=== PATIENT | female | born 1955 | race Caucasian/White ===

== ENCOUNTER → 2016-12-02 | Outpatient (CLI) | payer OTHER ==
--- NOTE | 2016-12-03 10:53 | MM ---
Reason for exam: screening (asymptomatic). Last mammogram was performed 1 year and 1 month ago. History: Patient is postmenopausal. Took estrogen for 7 years. Took progesterone for 7 years. Physical Findings: A clinical breast exam by your physician is recommended on an annual basis and results should be correlated with mammographic findings. MG Screening Mammo w CAD Bilateral CC and MLO view(s) were taken. Prior study comparison: November 07, 2015, bilateral MG screening mammo w CAD. October 10, 2006, bilateral screening mammogram w/CAD. There are scattered fibroglandular densities. There is chronic nodularity in the right breast. No significant changes when compared with prior studies. ASSESSMENT: Benign, BI-RAD 2 RECOMMENDATION: Routine screening mammogram of both breasts in 1 year.
== END | disposition home or self-care (01) ==
LOC: RADMAMWWP 15:28
PROVIDERS: ATTEND Family Medicine
DX: Z12.31 Encounter for screening mammogram for malignant neoplasm of breast (principal)

== ENCOUNTER → 2018-01-12 | Outpatient (CLI) | payer OTHER ==
--- NOTE | 2018-01-13 18:06 | BD ---
EXAMINATION TYPE: Axial Bone Density DATE OF EXAM: 01/12/2018 COMPARISON: NONE CLINICAL HISTORY: 62-year-old female postmenopausal screening without HRT Height: 61 Weight: 148.9 FRAX RISK QUESTIONS: Alcohol (3 or more units per day): no Family History (Parent hip fracture): no Glucocorticoids (More than 3mos): no (Ex: prednisone, prednisolone, methylprednisolone, dexamethasone, and hydrocortisone). History of Fracture in Adulthood: yes Secondary Osteoporosis: 1. Type 1 Diabetes: no 2. Hyperthyroidism: no 3. Menopause before 45: yes 4. Malnutrition: no 5. Chronic liver disease: no Rheumatoid Arthritis: no Current Tobacco Use: yes RISK FACTORS HISTORY OF: History of Wrist Fracture: rt When: 3 years old Surgery to Spine/Hip(right/left)/Wrist (right/left): t-spine 7,8 Family History of Osteoporosis: yes Active: yes Diet low in dairy products/other sources of calcium: yes Postmenopausal woman: age 41 Lost more than 2 inches in height since high school: yes Frequent falls: no MEDICATIONS: inhalers, pravastatin, lisinopril, ropinirole, dextrine, allergy meds Additional History: EXAM MEASUREMENTS: Bone mineral densitometry was performed using the Dec[employer] System. Bone mineral density as measured about the Lumbar spine is: ----- L1-L4(G/cm2): 1.012 T Score Values are as follows: ----- L2: -1.5 ----- L3: -2.2 ----- L4: -0.8 ----- L1-L4: -1.4 Bone mineral density : baseline Bone mineral density about the R hip (g/cm2): 0.877 Bone mineral density about the L hip (g/cm2): T Score values are as follows: -----R Neck: -1.2 -----L Neck: -1.2 -----R Total: -1.3 -----L Total: -1.7 Bone mineral density : baseline IMPRESSION: Osteopenia (T Score between -2.5 and -1). There is slightly increased risk of fracture and the patient may be considered for treatment. Re-Screen 2-5 years. NOTE: T-SCORE=SD OF THE YOUNG ADULT MEAN.
--- NOTE | 2018-01-14 11:13 | MM ---
Reason for exam: screening (asymptomatic). Last mammogram was performed 1 year and 1 month ago. History: Patient is postmenopausal. Took estrogen for 7 years. Took progesterone for 7 years. Physical Findings: A clinical breast exam by your physician is recommended on an annual basis and results should be correlated with mammographic findings. MG Screening Mammo w CAD Bilateral CC and MLO view(s) were taken. Prior study comparison: December 02, 2016, bilateral MG screening mammo w CAD. November 07, 2015, bilateral MG screening mammo w CAD. There are scattered fibroglandular densities. There is chronic nodularity in the right CC view laterally. 7mm nodule lateral left CC view likely intramammary lymph node not well seen previously and may be subtly apparent on the 2016 exam. 6 month follow up recommended. ASSESSMENT: Probably benign, BI-RAD 3 RECOMMENDATION: Follow-up diagnostic mammogram of the left breast in 6 months. ANDRAE
== END | disposition home or self-care (01) ==
LOC: RADMAMWWP 15:32
PROVIDERS: ATTEND Family Medicine
DX: Z12.31 Encounter for screening mammogram for malignant neoplasm of breast (principal); M85.80 Other specified disorders of bone density and structure, unspecified site
CPT/HCPCS: 77067; 77080

== ENCOUNTER → 2018-07-13 | Outpatient (CLI) | payer MEDICARE, OTHER ==
--- NOTE | 2018-07-13 10:50 | MM ---
Reason for exam: follow-up at short interval from prior study. Last mammogram was performed 6 months ago. History: Patient is postmenopausal. Took estrogen for 7 years. Took progesterone for 7 years. Physical Findings: Nurse did not find any significant physical abnormalities on exam. MG 3D Diag Mammo W/Cad LT CC, MLO, and ML view(s) were taken of the left breast. Prior study comparison: January 12, 2018, bilateral MG screening mammo w CAD. December 02, 2016, bilateral MG screening mammo w CAD. There are scattered fibroglandular densities. There is no discrete abnormality. These results were verbally communicated with the patient and result sheet given to the patient on 07/13/18. ASSESSMENT: Negative, BI-RAD 1 RECOMMENDATION: Return to routine screening mammogram schedule for both breasts. Back on schedule for January 2019.
== END | disposition home or self-care (01) ==
LOC: RADMAMWWP 10:09
PROVIDERS: ATTEND Family Medicine
DX: R92.8 Other abnormal and inconclusive findings on diagnostic imaging of breast (principal)
CPT/HCPCS: 77065; G0279; 77061

== ENCOUNTER 2019-06-12 19:43 | Emergency (ER) | payer MEDICARE, OTHER ==
[2019-06-12 19:50] VITALS: TEMP 97.5
[2019-06-12] MEDS ORDERED: SODIUM CHLORIDE 0.9% 500 ML 500 ML IV STA (19:58)
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
[2019-06-12 20:10] LABS: Basophils # (A) 0.1 k/uL (0-0.2); Basophils % (A) 1 %; Eosinophils # (A) 0.7 k/uL (0-0.7); Eosinophils % (A) 6 %; HCT 41.4 % (34.0-46.0); HGB 13.5 gm/dL (11.4-16.0); Lymphocytes # (A) 3.1 k/uL (1.0-4.8); Lymphocytes % (A) 25 %; MCH 29.8 pg (25.0-35.0); MCHC 32.7 g/dL (31.0-37.0); MCV 91.1 fL (80.0-100.0); Mean Platelet Volume 8.1; Monocytes # (A) 0.8 k/uL (0-1.0); Monocytes % (A) 7 %; Neutrophils # (A) 7.3 k/uL (1.3-7.7); Neutrophils % (A) 59 %; Platelet Count 348 k/uL (150-450); RBC 4.54 m/uL (3.80-5.40); RDW 12.5 % (11.5-15.5); WBC 12.3 k/uL (3.8-10.6)
[2019-06-12 20:20] LABS: ALT 15 U/L (4-34); AST 25 U/L (14-36); African American GFR (CKD) >90 (>60 ml/min/1.73 sqM); Albumin 3.8 g/dL (3.5-5.0); Alkaline Phosphatase 103 U/L (38-126); Anion Gap 7 mmol/L; Blood Urea Nitrogen 16 mg/dL (7-17); Calcium 9.5 mg/dL (8.4-10.2); Carbon Dioxide 27 mmol/L (22-30); Chloride 103 mmol/L (98-107); Glucose 126 mg/dL (74-99); Magnesium 1.8 mg/dL (1.6-2.3); Non-African American GFR(CKD) 87 (>60 ml/min/1.73 sqM); Sodium 137 mmol/L (137-145); Total Bilirubin 0.4 mg/dL (0.2-1.3); Total Protein 6.9 g/dL (6.3-8.2)
[2019-06-12 20:30] LABS: D-Dimer 0.41 mg/L FEU (<0.60); INR 0.9 (<1.2); Partial Thromboplastin Time 21.1 sec (22.0-30.0); Prothrombin Time 9.6 sec (9.0-12.0)
--- NOTE | 2019-06-12 20:38 | CT ---
EXAMINATION TYPE: CT brain wo con DATE OF EXAM: 06/12/2019 COMPARISON: None INDICATION: Syncope. Possible seizure. DLP: 1082.4 mGycm, Automated exposure control for dose reduction was used. CONTRAST: None CT of the brain is performed utilizing 3 mm thick sections through the posterior fossa and 3 mm thick sections through the remaining calvarium. Study is performed within 24 hours of arrival to the hosp [facility]. No abnormal hyperdensity is present to suggest an acute intracranial hemorrhage. No mass lesion is evident. No acute infarcts are evident. Ventricles and sulci are appropriate for the patient age. Tiny amount of fluid may be within the left maxillary sinus at the edge the [id number]. Consider e ruben acute left maxillary sinusitis. Remaining paranasal sinuses and mastoid air cells are clear. IMPRESSIONS: 1. Normal CT brain. 2. Clinical consideration for acute left maxillary sinusitis is recommended.
--- NOTE | 2019-06-12 20:41 | XR ---
EXAMINATION TYPE: XR chest 2V DATE OF EXAM: 06/12/2019 COMPARISON: 11/25/2015 INDICATION: Syncope and vomiting TECHNIQUE: Frontal and lateral views of the chest are obtained. FINDINGS: The heart size is normal. The pulmonary vasculature is normal. Minimal blunting the right costophrenic angle may be present.. Normal atelectasis may be present. Ol d right rib fractures present. Scoliosis is present. IMPRESSION: 1. Minimal subsegmental atelectasis may be at the left costophrenic angle. No acute pulmonary process not otherwise identified.
[2019-06-12] MEDS ORDERED: SODIUM CHLORIDE 0.9% 1,000 ML IV ONE (20:54)
[2019-06-12 21:50] VITALS: RESP 16
[2019-06-12 22:20] VITALS: BP 98/60; PULSE 91
== END 2019-06-12 22:50 | disposition left against medical advice (07) ==
LOC: EC 19:43
DX: R55 Syncope and collapse (principal); J44.9 Chronic obstructive pulmonary disease, unspecified; F17.200 Nicotine dependence, unspecified, uncomplicated; Z79.899 Other long term (current) drug therapy; Z88.1 Allergy status to other antibiotic agents; Z88.2 Allergy status to sulfonamides; Z88.8 Allergy status to other drugs, medicaments and biological substances
CPT/HCPCS: 36415; 70450; 71046; 80053; 83735; 83880; 84484; 85025; 85379; 85610; 85730; 93005; 96360; 96361; 99285

== ENCOUNTER 2022-01-27 22:10 | Inpatient (IN) | payer MEDICARE, OTHER ==
[2022-01-27] MEDS ORDERED: methylPREDNISolone SOD SUCCI 125 MG/2 ML VIAL IV STA (22:16)
[2022-01-27] MEDS ORDERED: IPRATROPIUM-ALBUTEROL 3 ML NEB INHALATION STA (22:16)
[2022-01-27] MEDS ORDERED: MAGNESIUM SULFATE-D5W PMX 1 GM in DEXTROSE/WATER 1 100ML.BAG IVPB STA (22:16)
[2022-01-27 22:28] LABS: Basophils # (A) 0.1 k/uL (0-0.2); Basophils % (A) 0 %; Eosinophils # (A) 2.6 k/uL (0-0.7); Eosinophils % (A) 11 %; HCT 42.5 % (34.0-46.0); HGB 14.6 gm/dL (11.4-16.0); Lymphocytes # (A) 0.7 k/uL (1.0-4.8); Lymphocytes % (A) 3 %; MCH 30.9 pg (25.0-35.0); MCHC 34.4 g/dL (31.0-37.0); MCV 89.9 fL (80.0-100.0); Mean Platelet Volume 8.9; Monocytes # (A) 0.7 k/uL (0-1.0); Monocytes % (A) 3 %; Neutrophils # (A) 19.7 k/uL (1.3-7.7); Neutrophils % (A) 83 %; Platelet Count 241 k/uL (150-450); RBC 4.73 m/uL (3.80-5.40); WBC 23.9 k/uL (3.8-10.6)
[2022-01-27 22:39] LABS: Partial Thromboplastin Time 23.6 sec (22.0-30.0); Prothrombin Time 10.8 sec (9.0-12.0)
[2022-01-27 22:43] LABS: ALT 31 U/L (4-34); AST 47 U/L (14-36); African American GFR (CKD) >90 (>60 ml/min/1.73 sqM); Albumin 3.8 g/dL (3.5-5.0); Alkaline Phosphatase 196 U/L (38-126); Anion Gap 11 mmol/L; Blood Urea Nitrogen 17 mg/dL (7-17); Calcium 8.6 mg/dL (8.4-10.2); Carbon Dioxide 20 mmol/L (22-30); Chloride 102 mmol/L (98-107); Glucose 140 mg/dL (74-99); Non-African American GFR(CKD) 81 (>60 ml/min/1.73 sqM); Potassium 4.1 mmol/L (3.5-5.1); Sodium 133 mmol/L (137-145); Total Bilirubin 0.6 mg/dL (0.2-1.3); Total Protein 6.8 g/dL (6.3-8.2)
--- NOTE | 2022-01-27 23:07 | XR ---
EXAMINATION TYPE: XR chest 2V DATE OF EXAM: 01/27/2022 COMPARISON: 06/12/2019 HISTORY: Syncope TECHNIQUE: 2 views FINDINGS: There is coarse interstitial density in the lungs. Heart size is normal. There are chest le ads. There is slight blunting of the lateral costophrenic angles. There are chest leads. Bones are os teopenic. IMPRESSION: Interstitial pulmonary infiltrates increased compared to old exam and could be combined p rimary fibrosis and acute heart failure. Also consider acute interstitial pneumonia.
[2022-01-27] MEDS ORDERED: LEVOFLOXACIN 750MG-D5W PMX 750 MG in DEXTROSE/WATER 1 150ML.BAG IVPB STA (23:23)
--- NOTE | 2022-01-28 | ED ---
SOB HPI - General Chief Complaint: Shortness of Breath Stated Complaint: ALONSO Time Seen by Provider: 01/27/22 22:15 Source: EMS Mode of arrival: EMS Limitations: no limitations - History of Present Illness Initial Comments: 66-year-old female past medical history of COPD who presents to the emergency department for shortness of breath. Reports that she has been short of breath for the past 3 days. She has been using her nebulizer without improvement in her symptoms. She does have a history of COPD however does not use oxygen at home. She last was on steroids approximately 2 months ago. States that before this time her last prednisone course was 13 months ago. 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 She denies any fevers or chills. Does admit to a cough which is chronic for her. Denies that it is productive. No sick contacts similar symp toms. She did take a Covid test at home before coming in which was negative. She denies any nausea or vomiting. EMS did find that the patient had a saturation of 92% on room air however she was significantly short of breath. She took a nebulizer treatment just before coming into the emergency department. No other alleviating, precipitating or modifying factors - Related Data Home Medications Medication Instructions Recorded Confirmed Aerospan 2 puff INHALATION BID 11/25/15 11/25/15 Albuterol Inhaler [Ventolin Hfa 1 - 2 puff INHALATION Q6HR PRN 11/25/15 11/25/15 Inhaler] DULoxetine HCL [Cymbalta] 60 mg PO DAILY 11/25/15 11/25/15 Ergocalciferol [Vitamin D2] 50,000 unit PO Q7D 11/25/15 11/25/15 Ibuprofen [Motrin] 800 mg PO BID PRN 11/25/15 11/25/15 Loratadine 10 mg PO DAILY 11/25/15 11/25/15 lisinopriL 40 mg PO DAILY 11/25/15 11/25/15 Previous Rx's Medication Instructions Recorded Azithromycin [Zithromax Z-pack] 250 mg PO DIRECTED #6 tab 11/25/15 predniSONE [Deltasone] 20 mg PO BID #10 tab 11/25/15 Allergies Allergy/AdvReac Type Severity Reaction Status Date / Time cephalexin monohydrate Allergy Rash/Hives Verified 01/27/22 22:14 [From Keflex] Sulfa (Sulfonamide Allergy Rash/Hives Verified 01/27/22 22:14 Antibiotics) loop diruretics AdvReac Unknown Uncoded 01/27/22 22:14 Review of Systems ROS Statement: Those systems with pertinent positive or pertinent negative responses have been documented in the HPI. ROS Other: All systems not noted in ROS Statement are negative. Past Medical History Past Medical History: Asthma, COPD Additional Past Medical History / Comment(s): neuropathy, reynaud's History of Any Multi-Drug Resistant Organisms: None Reported Past Surgical History: Back Surgery, Joint Replacement, Orthopedic Surgery Additional Past Surgical History / Comment(s): sinus sx, nerve sx Past Psychological History: No Psychological Hx Reported Past Alcohol Use History: Rare Past Drug Use History: None Reported General Exam Limitations: no limitations General appearance: alert, in distress Head exam: Present: atraumatic, normocephalic, normal inspection Eye exam: Present: normal appearance, PERRL, EOMI. Absent: scleral icterus, conjunctival injection, periorbital swelling ENT exam: Present: normal exam, mucous membranes moist Neck exam: Present: normal inspection. Absent: tenderness, meningismus, lymphadenopathy Respiratory exam: Present: respiratory distress, accessory muscle use, decreased breath sounds, other (Tachypnea and conversational dyspnea). Absent: wheezes, rales, rhonchi, stridor Cardiovascular Exam: Present: regular rate, normal rhythm, normal heart sounds. Absent: systolic murmur, diastolic murmur, rubs, gallop, clicks GI/Abdominal exam: Present: soft, normal bowel sounds. Absent: distended, tenderness, guarding, rebound, rigid Extremities exam: Present: normal inspection, full ROM, normal capillary refill. Absent: tenderness, pedal edema, joint swelling, calf tenderness Back exam: Present: normal inspection Neurological exam: Present: alert, oriented X3, CN II-XII intact Psychiatric exam: Present: normal affect, normal mood Skin exam: Present: warm, dry, intact, normal color. Absent: rash Course Vital Signs 01/27/22 01/27/22 01/27/22 22:14 22:32 22:40 Temperature 98.7 F Pulse Rate 88 81 84 Respiratory 24 Rate Blood Pressure 155/88 O2 Sat by Pulse 95 Oximetry Procedures - [place] Protocol (Time Out) Nurse: Rolo Ortiz Medical Decision Making - Medical Decision Making Upon arrival patient was placed into room 1. A thorough history and physical exam was performed. Patient was given a DuoNeb breathing treatment and she is moving minimal air. EMS had established an IV. Laboratory studies reveal a white blood cell count of 23.9. Lactic acid 2.2. She was given 1 g of magnesium and 25 of Solu-Medrol. Initiated on 130 mL of normal saline per hour as her BNP is low. Chest x-ray demonstrates interstitial pulmonary infiltrates. Consideration is pulmonary fibrosis or interstitial pneumonia. Due to elevated white blood cell count I will treat as a pneumonia. Patient is reevaluated and continues to have increased worker breathing. Saturating 93% on 2 L. Recommended admission. Called and left a message with Dr. Munoz. Awaiting call back at this time. Home meds have not been ordered as they are not updated - Lab Data Result diagrams: 01/27/22 22:18 01/27/22 22:18 Lab Results 01/27/22 01/27/22 01/27/22 Range/Units 22:18 22:18 22:18 WBC 23.9 H (3.8-10.6) k/uL RBC 4.73 (3.80-5.40) m/uL Hgb 14.6 (11.4-16.0) gm/dL Hct 42.5 (34.0-46.0) % MCV 89.9 (80.0-100.0) fL MCH 30.9 (25.0-35.0) pg MCHC 34.4 (31.0-37.0) g/dL RDW 13.0 (11.5-15.5) % Plt Count 241 (150-450) k/uL MPV 8.9 Neutrophils % 83 % Lymphocytes % 3 % Monocytes % 3 % Eosinophils % 11 % Basophils % 0 % Neutrophils # 19.7 H (1.3-7.7) k/uL Lymphocytes # 0.7 L (1.0-4.8) k/uL Monocytes # 0.7 (0-1.0) k/uL Eosinophils # 2.6 H (0-0.7) k/uL Basophils # 0.1 (0-0.2) k/uL PT 10.8 (9.0-12.0) sec INR 1.0 (<1.2) APTT 23.6 (22.0-30.0) sec Sodium 133 L (137-145) mmol/L Potassium 4.1 (3.5-5.1) mmol/L Chloride 102 (98-107) mmol/L Carbon Dioxide 20 L (22-30) mmol/L Anion Gap 11 mmol/L BUN 17 (7-17) mg/dL Creatinine 0.76 (0.52-1.04) mg/dL Est GFR (CKD-EPI)AfAm >90 (>60 ml/min/1.73 sqM) Est GFR (CKD-EPI)NonAf 81 (>60 ml/min/1.73 sqM) Glucose 140 H (74-99) mg/dL Lactic Ac Sepsis Rflx Plasma Lactic Acid Jesse (0.7-2.0) mmol/L Calcium 8.6 (8.4-10.2) mg/dL Total Bilirubin 0.6 (0.2-1.3) mg/dL AST 47 H (14-36) U/L ALT 31 (4-34) U/L Alkaline Phosphatase 196 H (38-126) U/L Troponin I (0.000-0.034) ng/mL NT-Pro-B Natriuret Pep pg/mL Total Protein 6.8 (6.3-8.2) g/dL Albumin 3.8 (3.5-5.0) g/dL 01/27/22 01/27/22 01/27/22 Range/Units 22:18 22:18 22:18 WBC (3.8-10.6) k/uL RBC (3.80-5.40) m/uL Hgb (11.4-16.0) gm/dL Hct (34.0-46.0) % MCV (80.0-100.0) fL MCH (25.0-35.0) pg MCHC (31.0-37.0) g/dL RDW (11.5-15.5) % Plt Count (150-450) k/uL MPV Neutrophils % % Lymphocytes % % Monocytes % % Eosinophils % % Basophils % % Neutrophils # (1.3-7.7) k/uL Lymphocytes # (1.0-4.8) k/uL Monocytes # (0-1.0) k/uL Eosinophils # (0-0.7) k/uL Basophils # (0-0.2) k/uL PT (9.0-12.0) sec INR (<1.2) APTT (22.0-30.0) sec Sodium (137-145) mmol/L Potassium (3.5-5.1) mmol/L Chloride (98-107) mmol/L Carbon Dioxide (22-30) mmol/L Anion Gap mmol/L BUN (7-17) mg/dL Creatinine (0.52-1.04) mg/dL Est GFR (CKD-EPI)AfAm (>60 ml/min/1.73 sqM) Est GFR (CKD-EPI)NonAf (>60 ml/min/1.73 sqM) Glucose (74-99) mg/dL Lactic Ac Sepsis Rflx Plasma Lactic Acid Jesse 2.2 H* (0.7-2.0) mmol/L Calcium (8.4-10.2) mg/dL Total Bilirubin (0.2-1.3) mg/dL AST (14-36) U/L ALT (4-34) U/L Alkaline Phosphatase (38-126) U/L Troponin I <0.012 (0.000-0.034) ng/mL NT-Pro-B Natriuret Pep 198 pg/mL Total Protein (6.3-8.2) g/dL Albumin (3.5-5.0) g/dL 01/27/22 Range/Units 22:50 WBC (3.8-10.6) k/uL RBC (3.80-5.40) m/uL Hgb (11.4-16.0) gm/dL Hct (34.0-46.0) % MCV (80.0-100.0) fL MCH (25.0-35.0) pg MCHC (31.0-37.0) g/dL RDW (11.5-15.5) % Plt Count (150-450) k/uL MPV Neutrophils % % Lymphocytes % % Monocytes % % Eosinophils % % Basophils % % Neutrophils # (1.3-7.7) k/uL Lymphocytes # (1.0-4.8) k/uL Monocytes # (0-1.0) k/uL Eosinophils # (0-0.7) k/uL Basophils # (0-0.2) k/uL PT (9.0-12.0) sec INR (<1.2) APTT (22.0-30.0) sec Sodium (137-145) mmol/L Potassium (3.5-5.1) mmol/L Chloride (98-107) mmol/L Carbon Dioxide (22-30) mmol/L Anion Gap mmol/L BUN (7-17) mg/dL Creatinine (0.52-1.04) mg/dL Est GFR (CKD-EPI)AfAm (>60 ml/min/1.73 sqM) Est GFR (CKD-EPI)NonAf (>60 ml/min/1.73 sqM) Glucose (74-99) mg/dL Lactic Ac Sepsis Rflx Y Plasma Lactic Acid Jesse (0.7-2.0) mmol/L Calcium (8.4-10.2) mg/dL Total Bilirubin (0.2-1.3) mg/dL AST (14-36) U/L ALT (4-34) U/L Alkaline Phosphatase (38-126) U/L Troponin I (0.000-0.034) ng/mL NT-Pro-B Natriuret Pep pg/mL Total Protein (6.3-8.2) g/dL Albumin (3.5-5.0) g/dL - EKG Data EKG Comments: EKG demonstrates sinus tachycardia with significant baseline artifact. Rate of 106. NC interval 213. QRS 72. QTC is 367. No acute ST segment elevations or depressions appreciated Disposition Clinical Impression: COPD exacerbation, CAP (community acquired pneumonia), Leukocytosis Disposition: ADMITTED IP TO THIS [facility] Condition: Serious Is patient prescribed a controlled substance at d/c from ED?: No Time of Disposition: 00:00 Decision to Admit Reason: Admit from EC Decision Date: 01/28/22 Decision Time: 00:00
[2022-01-28] MEDS ORDERED: NALOXONE 0.4 MG/ML 1 ML VIAL IV PRN (00:02)
[2022-01-28] MEDS: SODIUM CHLORIDE 0.9% 1,000 ML IV SCH ×3 (02:12→13:26)
[2022-01-28] MEDS: methylPREDNISolone SOD SUCCI 40 MG/ML 1 ML VIAL IV SCH ×3 (06:39→21:46)
[2022-01-28] MEDS: IPRATROPIUM-ALBUTEROL 3 ML NEB INHALATION SCH ×4 (07:47→20:04)
[2022-01-29] MEDS: SODIUM CHLORIDE 0.9% 1,000 ML IV SCH ×3 (00:54→13:37)
[2022-01-29] MEDS: methylPREDNISolone SOD SUCCI 40 MG/ML 1 ML VIAL IV SCH ×3 (05:22→20:21)
--- NOTE | 2022-01-29 05:25 | HP ---
HISTORY AND PHYSICAL CHIEF COMPLAINT: Shortness of breath. HISTORY OF PRESENT ILLNESS: This lady apparently presented to the emergency room with shortness of breath. She has COPD. I was not notified of the admission. Details of her history can be found in her emergency room note. Past medical history, family history, personal and social histories are unremarkable otherwise except for her extensive history of chronic obstructive pulmonary disease. She was last seen in December of this year and was on Wixela, pantoprazole, Singulair, albuterol MDI, pravastatin, updrafts with DuoNeb, loratadine, Motrin, and aspirin. ALLERGIES: She is allergic to sulfa, erythromycin. SOCIAL HISTORY: She does smoke. PHYSICAL EXAMINATION: VITAL SIGNS: Blood pressure is 145/85 with a pulse of 91, respirations of 36, and she is afebrile. GENERAL: She appeared to be short of breath. Skin was dry. HEENT: Head, ears, eyes, nose, mouth and throat were normal. CHEST: Demonstrated increased AP diameter with poor breath sounds. There are scattered rales throughout. There are occasional rhonchi. CARDIAC: Exam demonstrates sinus tachycardia. ABDOMEN: Soft and nontender. EXTREMITIES: Normal. IMPRESSION: Exacerbation of chronic obstructive pulmonary disease. PLAN: 1. Bedrest. 2. IV fluids. 3. IV and oral steroids. 4. Updrafts. MMODL / IJN: [id number] /
[2022-01-29] MEDS: IPRATROPIUM-ALBUTEROL 3 ML NEB INHALATION SCH ×4 (08:12→19:20)
[2022-01-29 09:01] LABS: Basophils # (A) 0.08 X 10*3/uL (0.00-0.10); Basophils % (A) 0.4 %; Eosinophils # (A) 0.28 X 10*3/uL (0.04-0.35); Eosinophils % (A) 1.5 %; HCT 38.4 % (37.2-46.3); HGB 12.8 g/dL (12.0-15.0); Immature Grans, Automated 0.8 %; Lymphocytes # (A) 1.96 X 10*3/uL (0.90-5.00); Lymphocytes % (A) 10.2 %; MCH 29.9 pg (27.0-32.0); MCHC 33.3 g/dL (32.0-37.0); MCV 89.7 fL (80.0-97.0); Mean Platelet Volume 11.2 fL (9.5-12.2); Monocytes # (A) 0.88 X 10*3/uL (0.20-1.00); Monocytes % (A) 4.6 %; NRBC Per 100 WBC 0 /100 WBCS (0.0-0.0); Neutrophils # (A) 15.93 X 10*3/uL (1.80-7.70); Neutrophils % (A) 82.5 %; Platelet Count 255 X 10*3/uL (140-440); RBC 4.28 X 10*6/uL (4.10-5.20); RDW 13.4 % (11.5-14.5); WBC 19.28 X 10*3/uL (4.50-10.00)
[2022-01-29 09:06] LABS: African American GFR (CKD) 76.1 (60.0-200.0); Anion Gap 7.8 mmol/L (10.00-18.00); BUN/Creat Ratio 16.78 Ratio (12.00-20.00); Blood Urea Nitrogen 15.1 mg/dL (9.0-27.0); Calcium 9.1 mg/dL (8.7-10.3); Carbon Dioxide 24.2 mmol/L (20.0-27.5); Non-African American GFR(CKD) 65.7 (60.0-200.0); Potassium 5.4 mmol/L (3.5-5.5)
[2022-01-29] MEDS ORDERED: NON FORMULARY DRUG (Albuterol Inhaler 60 PUFF Puff) INHALATION PRN (10:35)
[2022-01-29] MEDS: MONTELUKAST 10 MG TAB PO SCH (11:32)
[2022-01-29] MEDS: LORATADINE 10 MG TAB PO SCH (11:32)
[2022-01-29] MEDS: ASPIRIN 81 MG PO SCH (11:32)
[2022-01-29] MEDS: PRAVASTATIN SODIUM 80 MG TAB PO SCH (11:32)
[2022-01-29] MEDS: LEVOFLOXACIN 250 MG TAB PO SCH (11:32)
[2022-01-29] MEDS: PANTOPRAZOLE 40 MG TABLET PO SCH (11:32)
[2022-01-29] MEDS: ACETAMINOPHEN TAB 325 MG TAB PO PRN (13:39)
[2022-01-29] MEDS: SYMBICORT 160-4.5 MCG INHALER INHALATION SCH (19:20)
[2022-01-29] MEDS: IBUPROFEN 400 MG TAB PO PRN (20:21)
[2022-01-30] MEDS: IBUPROFEN 400 MG TAB PO PRN ×2 (03:29→13:55)
--- NOTE | 2022-01-30 04:08 | HP ---
HISTORY AND PHYSICAL CHIEF COMPLAINT: Difficulty breathing. HISTORY OF PRESENT ILLNESS: This is another admission for this 66-year-old white female with COPD. She thinks she got a cold from her grandson and got progressively more congested. She got to the point where she could hardly breathe and she came to emergency room. She was evaluated and was admitted as exacerbation of COPD. REVIEW OF SYSTEMS: She has had no hemoptysis, chest pain, nausea, vomiting, etc. Past medical history, family history, and personal and social histories are all otherwise unremarkable and noncontributory. PHYSICAL EXAMINATION: VITAL SIGNS: Blood pressure is 133/85 with a pulse of 89, respirations of 34, and she is afebrile. GENERAL: She appeared to be short of breath and in no acute distress. SKIN: Dry. HEAD, EARS, EYES, NOSE, MOUTH, AND THROAT: Normal. CHEST: Demonstrated poor breath sounds with increased AP diameter. There were extensive rales and inspiratory and expiratory wheezing. CARDIAC: Demonstrates sinus tachycardia. ABDOMEN: Soft, nontender. EXTREMITIES: Normal. IMPRESSION: Exacerbation of chronic obstructive pulmonary disease. PLAN: 1. Bedrest. 2. IV fluids. 3. IV and inhaled steroids. MMODL / IJN: [id number] /
[2022-01-30] MEDS: SODIUM CHLORIDE 0.9% 1,000 ML IV SCH ×4 (05:23→21:09)
[2022-01-30] MEDS: methylPREDNISolone SOD SUCCI 40 MG/ML 1 ML VIAL IV SCH ×3 (05:27→21:12)
[2022-01-30] MEDS: IPRATROPIUM-ALBUTEROL 3 ML NEB INHALATION PRN ×2 (05:45→23:19)
[2022-01-30] MEDS: SYMBICORT 160-4.5 MCG INHALER INHALATION SCH ×2 (05:56→19:58)
[2022-01-30] MEDS: IPRATROPIUM-ALBUTEROL 3 ML NEB INHALATION SCH ×4 (07:27→19:58)
[2022-01-30] MEDS: LEVOFLOXACIN 250 MG TAB PO SCH (08:42)
[2022-01-30] MEDS: PANTOPRAZOLE 40 MG TABLET PO SCH (13:17)
[2022-01-30] MEDS: ASPIRIN 81 MG PO SCH (13:17)
[2022-01-30] MEDS: LORATADINE 10 MG TAB PO SCH (13:17)
[2022-01-30] MEDS: MONTELUKAST 10 MG TAB PO SCH (13:17)
[2022-01-30] MEDS: PRAVASTATIN SODIUM 80 MG TAB PO SCH (13:18)
--- NOTE | 2022-01-30 13:29 | PN ---
PROGRESS NOTE DATE OF SERVICE: 01/29/2022 CHIEF COMPLAINT: Exacerbation of COPD. HISTORY OF PRESENT ILLNESS: This lady is still very short of breath. She is not febrile, and she is not nauseated. PHYSICAL EXAMINATION: Breath sounds are diminished. She still has tight inspiratory and expiratory wheezing with scattered rales heard throughout. IMPRESSION: Chronic obstructive pulmonary disease. PLAN: Continue with program including IV and oral steroids. MMODL / IJN: [id number] /
[2022-01-31] MEDS: SYMBICORT 160-4.5 MCG INHALER INHALATION SCH ×2 (05:44→20:10)
[2022-01-31] MEDS: IPRATROPIUM-ALBUTEROL 3 ML NEB INHALATION SCH ×4 (05:44→20:10)
[2022-01-31] MEDS: SODIUM CHLORIDE 0.9% 1,000 ML IV SCH ×3 (06:05→22:13)
[2022-01-31] MEDS: methylPREDNISolone SOD SUCCI 40 MG/ML 1 ML VIAL IV SCH ×3 (07:01→22:40)
[2022-01-31] MEDS: ACETAMINOPHEN TAB 325 MG TAB PO PRN ×2 (07:02→15:44)
[2022-01-31] MEDS: LEVOFLOXACIN 250 MG TAB PO SCH (09:59)
[2022-01-31] MEDS: PRAVASTATIN SODIUM 80 MG TAB PO SCH (13:55)
[2022-01-31] MEDS: ASPIRIN 81 MG PO SCH (13:57)
[2022-01-31] MEDS: LORATADINE 10 MG TAB PO SCH (13:57)
[2022-01-31] MEDS: MONTELUKAST 10 MG TAB PO SCH (13:57)
[2022-01-31] MEDS: PANTOPRAZOLE 40 MG TABLET PO SCH (13:57)
[2022-01-31] MEDS: IPRATROPIUM-ALBUTEROL 3 ML NEB INHALATION PRN (23:16)
[2022-02-01] MEDS: SODIUM CHLORIDE 0.9% 1,000 ML IV SCH ×3 (04:40→19:49)
[2022-02-01] MEDS: methylPREDNISolone SOD SUCCI 40 MG/ML 1 ML VIAL IV SCH (04:42)
[2022-02-01] MEDS: IPRATROPIUM-ALBUTEROL 3 ML NEB INHALATION PRN (06:01)
[2022-02-01] MEDS: IPRATROPIUM-ALBUTEROL 3 ML NEB INHALATION SCH ×4 (07:52→19:27)
[2022-02-01] MEDS: MONTELUKAST 10 MG TAB PO SCH (08:11)
[2022-02-01] MEDS: PANTOPRAZOLE 40 MG TABLET PO SCH (08:11)
[2022-02-01] MEDS: LORATADINE 10 MG TAB PO SCH (08:11)
[2022-02-01] MEDS: ASPIRIN 81 MG PO SCH (08:11)
[2022-02-01] MEDS: PRAVASTATIN SODIUM 80 MG TAB PO SCH (08:12)
[2022-02-01] MEDS: LEVOFLOXACIN 250 MG TAB PO SCH (08:12)
[2022-02-01] MEDS: SYMBICORT 160-4.5 MCG INHALER INHALATION SCH ×2 (11:00→19:27)
--- NOTE | 2022-02-01 11:39 | CDI ---
Documentation Clarification Form Date: 02/01/2022 11:30:50 AM From: Mari WallaceKALIN andrade, CCDS Admit Date: 01/28/2022 12:03:00 AM Patient Name: Radha Reyes I Visit Number: [id number] Discharge Date: ATTENTION: The Clinical Documentation Specialists (CDI) and [facility] Coding Staff appreciate your assistance in clarifying documentation. Please respond to the clarification below the line at the bottom and electronically sign. The CDI & [facility] Coding staff will review the response and follow-up if needed. Please note: Queries are made part of the Legal Health Record. If you have any questions, please contact the author of this message via ITS. Dr. Joaquin Munoz: Patient presented with SOB with a history of COPD, no home O2 use, has been on outpatient steroids. Based on this information and the findings below, is there an additional diagnosis that is clinically appropriate for this patient? History/Risk Factors per the 01/29 H/P: COPD, Smoker. Clinical Indicators: Presented to the ED via EMS with SOB x3 days, has been using her nebulizer without improvement. Was on steroids 2 months ago. Home COVID test was negative. Admit with COPD Exacerbation, Community Acquired Pneumonia and Leukocytosis. 01/27 VS: T 98.7, P 88, R 24, BP 155/88, PO 95 RA 01/28 VS: T ( ), P 95, R 20 (sob, talks in phrases), BP 102/65, PO 99 4Lnc 01/27 LAB: WBC 23.9, Neutrophils 19.7, Lymphocytes 0.7, EOS 2.6; Na 133, CO2 20, Glucose 140, Lactic Acid 2.2, AST 47, Alk Phos 196 01/28 COVID negative Treatment 01/27/01/28: Telemetry, O2 2Lnc - 4Lnc, INH Duoneb 3 ml x1, IV Mag Sulfate/Dextrose 100 mls @ 100 mls/hr x1, IV Solumedrol 125 mg x1, IV Levaquin 150 mls @ 100 mls/hr x1. Is there an additional diagnosis that is clinically appropriate for this patient? [ ] Acute Hypoxic Respiratory Failure [ ] Acute on Chronic Hypoxic Respiratory Failure [ ] Chronic Hypoxic Respiratory Failure [ ] Other Diagnosis, please specify: [ ] Unable to determine (Template Last Revised: June 2020) MTDD
--- NOTE | 2022-02-01 12:02 | PN ---
PROGRESS NOTE DATE OF SERVICE: 01/30/2022 CHIEF COMPLAINT: Exacerbation of chronic obstructive pulmonary disease. HISTORY OF PRESENT ILLNESS: This lady is doing slightly better, but she is still very dyspneic and dependent on oxygen for movement around the room. PHYSICAL EXAMINATION: CHEST: Clearing up nicely. There are very few rales and no significant rhonchi. There is no wheezing. IMPRESSION: Exacerbation of chronic obstructive pulmonary disease. PLAN: Continue with current program for the next day or two when she should be able to be discharged. MMODL / IJN: [id number] /
[2022-02-01 12:10] LABS: Basophils # (A) 0.2 k/uL (0-0.2); Basophils % (A) 1 %; Eosinophils # (A) 0.3 k/uL (0-0.7); Eosinophils % (A) 2 %; HCT 45.5 % (34.0-46.0); HGB 14.7 gm/dL (11.4-16.0); Lymphocytes # (A) 3.1 k/uL (1.0-4.8); Lymphocytes % (A) 19 %; MCH 30.1 pg (25.0-35.0); MCHC 32.2 g/dL (31.0-37.0); MCV 93.2 fL (80.0-100.0); Mean Platelet Volume 10.2; Monocytes % (A) 6 %; Neutrophils # (A) 11.1 k/uL (1.3-7.7); Neutrophils % (A) 68 %; Platelet Count 175 k/uL (150-450); RBC 4.88 m/uL (3.80-5.40); RDW 13.1 % (11.5-15.5); WBC 16.3 k/uL (3.8-10.6)
[2022-02-01 12:24] LABS: ALT 24 U/L (4-34); AST 16 U/L (14-36); African American GFR (CKD) >90 (>60 ml/min/1.73 sqM); Albumin 4.2 g/dL (3.5-5.0); Albumin/Globulin Ratio 1.3; Alkaline Phosphatase 157 U/L (38-126); Anion Gap 9 mmol/L; Blood Urea Nitrogen 26 mg/dL (7-17); Calcium 9.4 mg/dL (8.4-10.2); Carbon Dioxide 31 mmol/L (22-30); Chloride 98 mmol/L (98-107); Globulin 3.3 g/dL; Glucose 139 mg/dL (74-99); Non-African American GFR(CKD) 79 (>60 ml/min/1.73 sqM); Potassium 5.6 mmol/L (3.5-5.1); Sodium 138 mmol/L (137-145); Total Bilirubin 0.6 mg/dL (0.2-1.3); Total Protein 7.5 g/dL (6.3-8.2)
[2022-02-01] MEDS: ACETAMINOPHEN TAB 325 MG TAB PO PRN (13:37)
[2022-02-01 19:55] VITALS: TEMP 97.7
--- NOTE | 2022-02-01 21:23 | PN ---
PROGRESS NOTE DATE OF SERVICE: 01/31/2022 CHIEF COMPLAINT: COPD. HISTORY OF PRESENT ILLNESS: This lady is breathing a bit better, but she still gets extremely short of breath with any exertion. She denies fever, chills, chest pain, etc. PHYSICAL EXAMINATION: CHEST: Much more clear. There are very few rales, rhonchi, and almost no wheezing. CARDIAC: Normal. IMPRESSION: Exacerbation of chronic obstructive pulmonary disease. PLAN: 1. Physical therapy. 2. Cancel discharge for today. MMODL / IJN: [id number] /
[2022-02-02] MEDS: SODIUM CHLORIDE 0.9% 1,000 ML IV SCH ×2 (02:12→08:56)
[2022-02-02] MEDS: IPRATROPIUM-ALBUTEROL 3 ML NEB INHALATION PRN (04:56)
[2022-02-02] MEDS: SYMBICORT 160-4.5 MCG INHALER INHALATION SCH (07:50)
[2022-02-02] MEDS: IPRATROPIUM-ALBUTEROL 3 ML NEB INHALATION SCH ×3 (07:50→15:28)
[2022-02-02] MEDS: MONTELUKAST 10 MG TAB PO SCH (08:55)
[2022-02-02] MEDS: LORATADINE 10 MG TAB PO SCH (08:56)
[2022-02-02] MEDS: ASPIRIN 81 MG PO SCH (08:56)
[2022-02-02] MEDS: LEVOFLOXACIN 250 MG TAB PO SCH (08:56)
[2022-02-02] MEDS: PANTOPRAZOLE 40 MG TABLET PO SCH (08:56)
[2022-02-02] MEDS: PRAVASTATIN SODIUM 80 MG TAB PO SCH (08:57)
[2022-02-02 11:38] VITALS: BP 101/63; RESP 17
[2022-02-02 15:31] VITALS: PULSE 90
[2022-02-03] MEDS ORDERED: methylPREDNISolone 4 MG TAB TAPER PO SCH (09:00)
--- NOTE | 2022-02-03 23:12 | DS ---
DISCHARGE SUMMARY CHIEF COMPLAINT: Difficulty breathing. HISTORY OF PRESENT ILLNESS AND PHYSICAL EXAMINATION: Details of this lady's history and physical can be found in the initial workup. LABORATORY STUDIES: While she was in the hospital, she had laboratory studies, details of which can be found in the laboratory section of her chart. COURSE IN HOSPITAL: After admission, she was placed on bedrest and started on intravenous fluids with IV and inhaled steroids as well as updrafts. She slowly improved over the next several days. She was doing well enough on the evening of the that she felt she could go home. She will go home on her usual activity, diet, and medication, and she will be on Medrol Dosepak, and she will stay on Levaquin 250 mg. DuoNeb was refilled. She will be seen in the office in several days. FINAL DIAGNOSIS: Exacerbation of chronic obstructive pulmonary disease. OPERATIONS: None. CONSULTATIONS: None. She is improved. MMODL / IJN: [id number] /
--- NOTE | 2022-02-05 04:27 | PN ---
PROGRESS NOTE DATE OF SERVICE: 02/01/2022 CHIEF COMPLAINT: Exacerbation of chronic obstructive pulmonary disease. HISTORY OF PRESENT ILLNESS: This lady is still quite congested, and she is very weak. She does not have any fever or chills. She could not get across the room without support and nasal O2. PHYSICAL EXAMINATION: GENERAL: She is afebrile. CHEST: Breath sounds are diminished, and she still has wheezing on inspiration and expiration with scattered rales. CARDIAC: Demonstrates tachycardia. IMPRESSION: Chronic obstructive pulmonary disease. PLAN: Continue with IV fluids, oral antiemetics, and IV steroids. MMODL / IJN: [id number] /
--- NOTE | 2022-02-06 07:53 | CDI ---
Documentation Clarification Form Date: 02/01/2022 11:30:00 AM From: Mari WallaceKALIN andrade, CCDS Admit Date: 01/28/2022 12:03:00 AM Patient Name: Radha Reyes I Visit Number: [id number] Discharge Date: 02/02/2022 05:35:00 PM ATTENTION: The Clinical Documentation Specialists (CDI) and [facility] Coding Staff appreciate your assistance in clarifying documentation. Please respond to the clarification below the line at the bottom and electronically sign. The CDI & [facility] Coding staff will review the response and follow-up if needed. Please note: Queries are made part of the Legal Health Record. If you have any questions, please contact the author of this message via ITS. Dr. Joaquin Munoz: Patient presented with SOB with a history of COPD, no home O2 use, has been on outpatient steroids. Based on this information and the findings below, is there an additional diagnosis that is clinically appropriate for this patient? History/Risk Factors per the 01/29 H/P: COPD, Smoker. Clinical Indicators: Presented to the ED via EMS with SOB x3 days, has been using her nebulizer without improvement. Was on steroids 2 months ago. Home COVID test was negative. Admit with COPD Exacerbation, Community Acquired Pneumonia and Leukocytosis. 01/27 VS: T 98.7, P 88, R 24, BP 155/88, PO 95 RA 01/28 VS: T ( ), P 95, R 20 (sob, talks in phrases), BP 102/65, PO 99 4Lnc 01/27 LAB: WBC 23.9, Neutrophils 19.7, Lymphocytes 0.7, EOS 2.6; Na 133, CO2 20, Glucose 140, Lactic Acid 2.2, AST 47, Alk Phos 196 01/28 COVID negative Treatment 01/27/01/28: Telemetry, O2 2Lnc - 4Lnc, INH Duoneb 3 ml x1, IV Mag Sulfate/Dextrose 100 mls @ 100 mls/hr x1, IV Solumedrol 125 mg x1, IV Levaquin 150 mls @ 100 mls/hr x1. Is there an additional diagnosis that is clinically appropriate for this patient? [ ] Acute Hypoxic Respiratory Failure [ ] Acute on Chronic Hypoxic Respiratory Failure [ ] Chronic Hypoxic Respiratory Failure [ ] Other Diagnosis, please specify: [ ] Unable to determine (Template Last Revised: June 2020) MTDD
--- NOTE | 2022-02-06 11:01 | MISC ---
MISCELLANOUS REPORT Acute hypoxic respiratory failure. MMODL / IJN: [id number] /
== END 2022-02-02 17:35 | disposition home or self-care (01) | DRG 190 ==
LOC: EC 22:10 → 4SSUR 01-28 00:03 → 5NMEDONC 01-28 17:50
PROVIDERS: ADMIT Family Medicine; ATTEND Family Medicine
DX: J44.1 Chronic obstructive pulmonary disease with (acute) exacerbation (principal); J96.01 Acute respiratory failure with hypoxia; F17.210 Nicotine dependence, cigarettes, uncomplicated; J84.10 Pulmonary fibrosis, unspecified; I73.00 Raynaud's syndrome without gangrene; G62.9 Polyneuropathy, unspecified; J45.909 Unspecified asthma, uncomplicated; Z88.0 Allergy status to penicillin; Z88.2 Allergy status to sulfonamides; Z88.8 Allergy status to other drugs, medicaments and biological substances; Z20.822 Contact with and (suspected) exposure to COVID-19; Z79.899 Other long term (current) drug therapy
CPT/HCPCS: 36415; 71046; 80048; 80053; 83605; 83880; 84484; 85025; 85610; 85730; 87635; 93005; 94640; 94760; 96361; 96365; 96366; 96367; 96375; 99285

== ENCOUNTER 2022-10-04 19:55 | Inpatient (IN) | payer MEDICARE, OTHER ==
[2022-10-04] MEDS ORDERED: IPRATROPIUM 0.5 MG/2.5 ML NEBU INHALATION STA (19:57)
[2022-10-04] MEDS ORDERED: ALBUTEROL NEBULIZED 2.5 MG/3 ML INHALATION STA (19:57)
[2022-10-04] MEDS ORDERED: methylPREDNISolone SOD SUCCI 125 MG/2 ML VIAL IV STA (19:57)
[2022-10-04 20:16] LABS: Basophils # (A) 0.1 k/uL (0-0.2); Basophils % (A) 0 %; Eosinophils # (A) 0.1 k/uL (0-0.7); Eosinophils % (A) 1 %; HCT 48.3 % (34.0-46.0); Lymphocytes % (A) 35 %; MCH 28.9 pg (25.0-35.0); MCHC 33.1 g/dL (31.0-37.0); MCV 87.3 fL (80.0-100.0); Mean Platelet Volume 8.5; Monocytes # (A) 0.9 k/uL (0-1.0); Monocytes % (A) 5 %; Neutrophils # (A) 9.6 k/uL (1.3-7.7); Neutrophils % (A) 57 %; Platelet Count 402 k/uL (150-450); RBC 5.54 m/uL (3.80-5.40); RDW 13.2 % (11.5-15.5); WBC 16.9 k/uL (3.8-10.6)
[2022-10-04 20:26] LABS: ALT 20 U/L (4-34); AST 23 U/L (14-36); African American GFR (CKD) >90 (>60 ml/min/1.73 sqM); Alkaline Phosphatase 115 U/L (38-126); Anion Gap 9 mmol/L; Blood Urea Nitrogen 19 mg/dL (7-17); Calcium 9.3 mg/dL (8.4-10.2); Carbon Dioxide 25 mmol/L (22-30); Chloride 104 mmol/L (98-107); Glucose 126 mg/dL (74-99); Magnesium 1.9 mg/dL (1.6-2.3); Non-African American GFR(CKD) 90 (>60 ml/min/1.73 sqM); Potassium 3.8 mmol/L (3.5-5.1); Sodium 138 mmol/L (137-145); Total Bilirubin 0.6 mg/dL (0.2-1.3); Total Protein 7.1 g/dL (6.3-8.2)
[2022-10-04] MEDS ORDERED: SODIUM CHLORIDE 0.9% 500 ML 500 ML IV ONE (20:26)
[2022-10-04] MEDS ORDERED: MAGNESIUM SULFATE-D5W PMX 1 GM in DEXTROSE/WATER 1 100ML.BAG IVPB ONE (20:26)
--- NOTE | 2022-10-04 20:26 | ED ---
General Adult HPI - General Chief complaint: Shortness of Breath Stated complaint: ALONSO Time Seen by Provider: 10/04/22 19:57 Source: patient, EMS, RN notes reviewed, old records reviewed Mode of arrival: EMS Limitations: no limitations - History of Present Illness Initial comments: 67-year-old female history COPD presenting for evaluation of cough and dyspnea. Symptoms have progressed over the past 5 days. She was seen by primary care provider and states that they had discussed the possibility of supplemental oxygen but the patient did not qualify. She denies central chest pain. She states she's had low-grade fever. - Related Data Home Medications Medication Instructions Recorded Confirmed Albuterol Inhaler [Ventolin Hfa 1 - 2 puff INHALATION RT-Q4H PRN 11/25/15 10/04/22 Inhaler] Fluticasone Propion/Salmeterol 1 puff INHALATION RT-BID 01/28/22 10/04/22 [Wixela 500-50 Inhub] Montelukast [Singulair] 10 mg PO W/LUNCH 01/28/22 10/04/22 Pantoprazole Sodium [Protonix] 20 mg PO W/LUNCH 01/28/22 10/04/22 Pravastatin Sodium [Pravachol] 80 mg PO W/LUNCH 01/28/22 10/04/22 Fluticasone Nasal [place] [Flonase 1 spray EA NOSTRIL DAILY 10/04/22 10/04/22 Nasal [place]] methylPREDNISolone Dose Pack See Taper PO DIRECTED 10/04/22 10/04/22 [Medrol Dose Pack] Previous Rx's Medication Instructions Recorded Levofloxacin [Levaquin] 250 mg PO DAILY #10 tab 02/02/22 Allergies Allergy/AdvReac Type Severity Reaction Status Date / Time cephalexin monohydrate Allergy Rash/Hives Verified 10/04/22 21:10 [From Keflex] Sulfa (Sulfonamide Allergy Rash/Hives Verified 10/04/22 21:10 Antibiotics) loop diruretics Allergy Unknown Uncoded 10/04/22 21:10 Review of Systems ROS Statement: Those systems with pertinent positive or pertinent negative responses have been documented in the HPI. ROS Other: All systems not noted in ROS Statement are negative. Past Medical History Past Medical History: Asthma, COPD, Pneumonia Additional Past Medical History / Comment(s): neuropathy, reynaud's History of Any Multi-Drug Resistant Organisms: None Reported Past Surgical History: Back Surgery, Joint Replacement, Orthopedic Surgery Additional Past Surgical History / Comment(s): sinus sx, nerve sx Past Psychological History: No Psychological Hx Reported Smoking Status: Former smoker Past Alcohol Use History: Rare Past Drug Use History: None Reported General Exam Limitations: no limitations General appearance: alert, in distress Head exam: Present: atraumatic, normocephalic Eye exam: Present: normal appearance, PERRL Respiratory exam: Present: respiratory distress, wheezes, accessory muscle use, decreased breath sounds Cardiovascular Exam: Present: normal rhythm, tachycardia GI/Abdominal exam: Present: soft. Absent: distended, tenderness, guarding Extremities exam: Present: normal inspection, normal capillary refill. Absent: pedal edema, calf tenderness Neurological exam: Present: alert, oriented X3, CN II-XII intact. Absent: motor sensory deficit Psychiatric exam: Present: normal affect, normal mood Skin exam: Present: warm, dry, intact. Absent: cyanosis, diaphoretic Course Vital Signs 10/04/22 10/04/22 10/04/22 19:57 20:36 20:39 Temperature 96.7 F L Pulse Rate 127 H 102 H 105 H Respiratory 32 H 22 Rate Blood Pressure 170/108 148/87 O2 Sat by Pulse 94 L 94 L Oximetry 10/04/22 20:58 Temperature Pulse Rate 108 H Respiratory Rate Blood Pressure O2 Sat by Pulse Oximetry Medical Decision Making - Medical Decision Making Was pt. sent in by a medical professional or institution (, PA, WIRE FRAME DIPPER, urgent care, hospital, or senior care...) When possible be specific @ -No Did you speak to anyone other than the patient for history (EMS, parent, family, police, friend...)? What history was obtained from this source @ -No Did you review nursing and triage notes (agree or disagree)? Why? @ -I reviewed and agree with nursing and triage notes Were old charts reviewed (outside hosp., previous admission, EMS record, old EKG, old radiological studies, urgent care reports/EKG's, senior care records)? Report findings @ -No old charts were reviewed Differential Diagnosis (chest pain, altered mental status, abdominal pain women, abdominal pain men, vaginal bleeding, weakness, fever, dyspnea, syncope, headache, dizziness, GI bleed, back pain, seizure, CVA, palpatations, mental health, musculoskeletal)? @ -Differential Dyspnea: Coronary syndrome, arrhythmia, tamponade, asthma, COPD, pulmonary embolism, pneumonia, pneumothorax, pulmonary effusion, anaphylaxis, diabetic ketoacidosis, flailed chest, pulmonary contusion, diaphragmatic rupture, anemia, neuromuscular, this is not meant to be an all-inclusive list. EKG interpreted by me (3pts min.). @ -Sinus tachycardia with PVC rate of 116, KS interval 167, QRS duration 84, QTC [address] segment elevation X-rays interpreted by me (1pt min.). @ -None done CT interpreted by me (1pt min.). @ -None done U/S interpreted by me (1pt. min.). @ -None done What testing was considered but not performed or refused? (CT, X-rays, U/S, labs)? Why? @ -None What meds were considered but not given or refused? Why? @ -None Did you discuss the management of the patient with other professionals (professionals i.e. , PA, WIRE FRAME DIPPER, lab, RT, psych nurse, clinical social work therapist, equalizer operator, teacher, chief science officer, counter caser)? Give summary @ -Dr. Munoz Was smoking cessation discussed for >3mins.? @ -No Was critical care preformed (if so, how long)? @ -[Yes, 35 minutes Were there social determinants of health that impacted care today? How? (Homelessness, low income, unemployed, alcoholism, drug addiction, transportation, low edu. Level, literacy, decrease access to med. care, senior living, rehab)? @ -No Was there de-escalation of care discussed even if they declined (Discuss DNR or withdrawal of care, Hospice)? DNR status @ -No What co-morbidities impacted this encounter? (DM, HTN, Smoking, COPD, CAD, Cancer, CVA, ARF, Chemo, Hep., AIDS, mental health diagnosis, sleep apnea, morbid obesity)? @ -COPD Was patient admitted / discharged? Hospital course, mention meds given and route, prescriptions, significant lab abnormalities, going to OR and other pertinent info. @ -[67-year-old presenting with severe dyspnea. Patient in respiratory distress, tachypneic, with decreased air entry and wheezing bilaterally. Patient has had trial of steroids and antibiotics as an outpatient. Symptoms continued to worsen. She will require supplemental oxygen. She's given albuterol, Atrovent, IV steroids in the emergency department. She does have a leukocytosis without fever or focal pneumonia on x-ray. She started on azithromycin, and blood cultures are pending. She will be admitted for COPD exacerbation. Admitting physician Dr. Munoz. Undiagnosed new problem with uncertain prognosis? @ -No Drug Therapy requiring intensive monitoring for toxicity (Heparin, Nitro, Insulin, Cardizem)? @ -No Were any procedures done? @ -No Diagnosis/symptom? @ -[Acute COPD exacerbation Acute, or Chronic, or Acute on Chronic? @ -[Acute on chronic Uncomplicated (without systemic symptoms) or Complicated (systemic symptoms)? @ -default Side effects of treatment? @ -No Exacerbation, Progression, or Severe Exacerbation? @ -No Poses a threat to life or bodily function? How? (Chest pain, [place], [place], pneumonia, PE, COPD, DKA, ARF, appy, cholecystitis, CVA, Diverticulitis, Homicidal, Suicidal, threat to staff... and all critical care pts) @ -Yes, respiratory failure - Lab Data Result diagrams: 10/04/22 20:08 10/04/22 20:08 Lab Results 10/04/22 10/04/22 10/04/22 Range/Units 20:08 20:08 20:08 WBC 16.9 H (3.8-10.6) k/uL RBC 5.54 H (3.80-5.40) m/uL Hgb 16.0 (11.4-16.0) gm/dL Hct 48.3 H (34.0-46.0) % MCV 87.3 (80.0-100.0) fL MCH 28.9 (25.0-35.0) pg MCHC 33.1 (31.0-37.0) g/dL RDW 13.2 (11.5-15.5) % Plt Count 402 (150-450) k/uL MPV 8.5 PT 10.0 (9.0-12.0) sec INR 0.9 (<1.2) APTT 22.5 (22.0-30.0) sec Sodium 138 (137-145) mmol/L Potassium 3.8 (3.5-5.1) mmol/L Chloride 104 (98-107) mmol/L Carbon Dioxide 25 (22-30) mmol/L Anion Gap 9 mmol/L BUN 19 H (7-17) mg/dL Creatinine 0.68 (0.52-1.04) mg/dL Est GFR (CKD-EPI)AfAm >90 (>60 ml/min/1.73 sqM) Est GFR (CKD-EPI)NonAf 90 (>60 ml/min/1.73 sqM) Glucose 126 H (74-99) mg/dL Plasma Lactic Acid Jesse (0.7-2.0) mmol/L Calcium 9.3 (8.4-10.2) mg/dL Magnesium 1.9 (1.6-2.3) mg/dL Total Bilirubin 0.6 (0.2-1.3) mg/dL AST 23 (14-36) U/L ALT 20 (4-34) U/L Alkaline Phosphatase 115 (38-126) U/L Troponin I (0.000-0.034) ng/mL NT-Pro-B Natriuret Pep pg/mL Total Protein 7.1 (6.3-8.2) g/dL Albumin 4.0 (3.5-5.0) g/dL 10/04/22 10/04/22 10/04/22 Range/Units 20:08 20:08 20:08 WBC (3.8-10.6) k/uL RBC (3.80-5.40) m/uL Hgb (11.4-16.0) gm/dL Hct (34.0-46.0) % MCV (80.0-100.0) fL MCH (25.0-35.0) pg MCHC (31.0-37.0) g/dL RDW (11.5-15.5) % Plt Count (150-450) k/uL MPV PT (9.0-12.0) sec INR (<1.2) APTT (22.0-30.0) sec Sodium (137-145) mmol/L Potassium (3.5-5.1) mmol/L Chloride (98-107) mmol/L Carbon Dioxide (22-30) mmol/L Anion Gap mmol/L BUN (7-17) mg/dL Creatinine (0.52-1.04) mg/dL Est GFR (CKD-EPI)AfAm (>60 ml/min/1.73 sqM) Est GFR (CKD-EPI)NonAf (>60 ml/min/1.73 sqM) Glucose (74-99) mg/dL Plasma Lactic Acid Jesse 2.1 H* (0.7-2.0) mmol/L Calcium (8.4-10.2) mg/dL Magnesium (1.6-2.3) mg/dL Total Bilirubin (0.2-1.3) mg/dL AST (14-36) U/L ALT (4-34) U/L Alkaline Phosphatase (38-126) U/L Troponin I <0.012 (0.000-0.034) ng/mL NT-Pro-B Natriuret Pep 217 pg/mL Total Protein (6.3-8.2) g/dL Albumin (3.5-5.0) g/dL Critical Care Time Critical Care Time: Yes Total Critical Care Time: 35 Disposition Clinical Impression: COPD exacerbation, Leukocytosis Disposition: ADMITTED IP TO THIS [facility] Condition: Stable Is patient prescribed a controlled substance at d/c from ED?: No Referrals: Joaquin Munoz MD [Primary Care Provider] - 1-2 days Time of Disposition: 21:16
--- NOTE | 2022-10-04 20:34 | XR ---
EXAMINATION TYPE: XR chest 2V DATE OF EXAM: 10/04/2022 8:29 PM COMPARISON: Chest radiographs from 01/27/2022 TECHNIQUE: XR chest 2V Frontal and lateral views of the chest. CLINICAL INDICATION:Female, 67 years old with history of difficulty breathing; FINDINGS: Lungs/Pleura: Prominent interstitial lung markings are seen scattered throughout the lungs with reuben ening of the diaphragm and increased lucency of the lung apices. No evidence of focal consolidation, pneumothorax or pleural effusion. Pulmonary vascularity: Unremarkable. Heart/mediastinum: Cardiomediastinal silhouette is unremarkable. Musculoskeletal: No acute osseous pathology. Suspected post interventional changes to the right poste rior rib IMPRESSION: 1. Chronic changes without acute pulmonary process. No significant change from prior. 2. COPD changes.
[2022-10-04] MEDS ORDERED: AZITHROMYCIN 500 MG in SODIUM CHLORIDE 0.9% 250 ML IVPB STA (20:37)
[2022-10-04 20:46] LABS: INR 0.9 (<1.2); Partial Thromboplastin Time 22.5 sec (22.0-30.0)
[2022-10-04] MEDS ORDERED: NALOXONE 0.4 MG/ML 1 ML VIAL IVP PRN (21:04)
[2022-10-04] MEDS ORDERED: IPRATROPIUM-ALBUTEROL 3 ML NEB INHALATION PRN (21:04)
[2022-10-04] MEDS: ACETAMINOPHEN TAB 325 MG TAB PO PRN (22:55)
[2022-10-05] MEDS: methylPREDNISolone SOD SUCCI 125 MG/2 ML VIAL IV SCH ×5 (00:11→23:46)
[2022-10-05] MEDS: ACETAMINOPHEN TAB 325 MG TAB PO PRN ×4 (02:29→21:10)
[2022-10-05] MEDS: IPRATROPIUM-ALBUTEROL 3 ML NEB INHALATION SCH ×4 (08:05→21:24)
[2022-10-06] MEDS: methylPREDNISolone SOD SUCCI 125 MG/2 ML VIAL IV SCH ×3 (06:15→17:38)
[2022-10-06] MEDS: LEVOFLOXACIN 250 MG TAB PO SCH (07:47)
[2022-10-06] MEDS: FLUTICASONE 50MCG/SPRAY NASAL 16GM EA NOSTRIL SCH (07:47)
[2022-10-06] MEDS: IPRATROPIUM-ALBUTEROL 3 ML NEB INHALATION SCH ×4 (08:22→20:16)
[2022-10-06] MEDS: SYMBICORT 160-4.5 MCG INHALER INHALATION SCH ×2 (08:22→20:16)
[2022-10-06] MEDS: ACETAMINOPHEN TAB 325 MG TAB PO PRN ×2 (10:37→18:24)
[2022-10-06] MEDS: PRAVASTATIN SODIUM 80 MG TAB PO SCH (12:19)
[2022-10-06] MEDS: MONTELUKAST 10 MG TAB PO SCH (12:19)
[2022-10-06] MEDS: PANTOPRAZOLE 40 MG TABLET PO SCH (12:20)
[2022-10-07] MEDS: methylPREDNISolone SOD SUCCI 125 MG/2 ML VIAL IV SCH ×5 (00:21→23:16)
[2022-10-07] MEDS: LEVOFLOXACIN 250 MG TAB PO SCH (07:44)
[2022-10-07] MEDS: FLUTICASONE 50MCG/SPRAY NASAL 16GM EA NOSTRIL SCH (07:45)
[2022-10-07] MEDS: ACETAMINOPHEN TAB 325 MG TAB PO PRN (07:45)
[2022-10-07] MEDS: IPRATROPIUM-ALBUTEROL 3 ML NEB INHALATION SCH ×4 (09:37→21:21)
[2022-10-07] MEDS: SYMBICORT 160-4.5 MCG INHALER INHALATION SCH ×2 (09:37→21:21)
[2022-10-07] MEDS: MONTELUKAST 10 MG TAB PO SCH (12:33)
[2022-10-07] MEDS: PRAVASTATIN SODIUM 80 MG TAB PO SCH (12:33)
[2022-10-07] MEDS: PANTOPRAZOLE 40 MG TABLET PO SCH (12:33)
[2022-10-07 13:07] VITALS: BMI 26.4
--- NOTE | 2022-10-08 01:54 | PN ---
PROGRESS NOTE DATE OF SERVICE: 10/05/2022 CHIEF COMPLAINT: COPD. HISTORY OF PRESENT ILLNESS: This lady is not doing a great deal better. She denies chest pain, fever and chills, sputum production, etc. PHYSICAL EXAMINATION: CHEST: Breath sounds are still very tight and wheezy. There are scattered rales. She is tachypneic. CARDIAC: Demonstrates tachycardia. ABDOMEN: Soft. IMPRESSION: Exacerbation of chronic obstructive pulmonary disease. PLAN: Continue with current program. MMODL / IJN: [id number] /
[2022-10-08] MEDS: ACETAMINOPHEN TAB 325 MG TAB PO PRN ×2 (06:54→14:06)
[2022-10-08] MEDS: methylPREDNISolone SOD SUCCI 125 MG/2 ML VIAL IV SCH ×3 (06:55→18:33)
--- NOTE | 2022-10-08 07:33 | HP ---
HISTORY AND PHYSICAL CHIEF COMPLAINT: Difficulty breathing. HISTORY OF PRESENT ILLNESS: This is another admission for this 67-year-old white female with severe COPD. Started having difficulty breathing and came to the office, where x-ray failed to demonstrate active infiltrate. She was started on steroids as well as an antibiotic and sent home. She usually can pull out of these events. However, she could not this time and came to the emergency room with significant shortness of breath. REVIEW OF SYSTEMS: She has had no neurologic problems, confusion, change in vision or hearing, cough, hemoptysis, abdominal pain, nausea, vomiting, diarrhea, melena, renal failure, etc. Past medical history, family history, personal and social histories reveal that she is on, 1. Pantoprazole. 2. Levaquin 250 mg. 3. Medrol Dosepak. 4. Wixela inhaler. 5. Albuterol inhaler. 6. Montelukast. 7. Pravastatin. 8. DuoNeb. 9. Fluticasone. 10.Loratadine. 11.Aspirin. She is allergic to loop diuretics, sulfa, erythromycin. Her story is otherwise unremarkable. She still smokes some on a daily basis. PHYSICAL EXAMINATION: VITAL SIGNS: Blood pressure is 142/92 with a pulse of 93, respirations of 40, and she is afebrile. GENERAL: She appeared to be acutely short of breath. She is awake and alert. SKIN: Dry. HEAD, EARS, EYES, NOSE, MOUTH AND THROAT: Normal. NECK: Neck veins are not distended. Thyroid was not enlarged. CHEST: Demonstrated an increased AP diameter with poor breath sounds. CARDIAC: Demonstrated sinus tachycardia. ABDOMEN: Soft, nontender without any masses or visceromegaly. EXTREMITIES: Normal. NEUROLOGICAL: She is intact. ASSESSMENT: She is admitted to the hospital with diagnoses of: 1. Exacerbation of chronic obstructive pulmonary disease. 2. History of hypertension. 3. History of hyperlipidemia. PLAN: 1. Bed rest. 2. IV fluids. 3. Serial EKGs and enzymes. 4. IV antibiotics. MMODL / IJN: [id number] /
[2022-10-08] MEDS: LEVOFLOXACIN 250 MG TAB PO SCH (07:40)
[2022-10-08] MEDS: FLUTICASONE 50MCG/SPRAY NASAL 16GM EA NOSTRIL SCH (07:40)
[2022-10-08] MEDS: IPRATROPIUM-ALBUTEROL 3 ML NEB INHALATION SCH ×4 (09:01→20:36)
[2022-10-08] MEDS: SYMBICORT 160-4.5 MCG INHALER INHALATION SCH ×2 (09:01→20:36)
[2022-10-08] MEDS: MONTELUKAST 10 MG TAB PO SCH (12:29)
[2022-10-08] MEDS: LOSARTAN 50 MG TAB PO SCH (12:29)
[2022-10-08] MEDS: PANTOPRAZOLE 40 MG TABLET PO SCH (12:29)
[2022-10-08] MEDS: PRAVASTATIN SODIUM 80 MG TAB PO SCH (12:44)
--- NOTE | 2022-10-08 14:20 | PN ---
PROGRESS NOTE CHIEF COMPLAINT: Exacerbation of COPD. HISTORY OF PRESENT ILLNESS: This lady's breathing is improved, but she is having difficulty with headache. Her blood pressure is slightly elevated. PHYSICAL EXAMINATION: VITAL SIGNS: Normal. CHEST: More clear. There are fewer rales, rhonchi and wheezing. CARDIAC: Normal. ABDOMEN: Soft, nontender. IMPRESSION: 1. Exacerbation of chronic obstructive pulmonary disease. 2. Hypertension. 3. Elevated blood pressure. PLAN: Add Cozaar 50 mg once a day and continue with pulmonary program. MMODL / IJN: [id number] /
[2022-10-09] MEDS: methylPREDNISolone SOD SUCCI 125 MG/2 ML VIAL IV SCH ×4 (00:37→18:31)
[2022-10-09] MEDS: LOSARTAN 50 MG TAB PO SCH (08:29)
[2022-10-09] MEDS: ACETAMINOPHEN TAB 325 MG TAB PO PRN (08:29)
[2022-10-09] MEDS: LEVOFLOXACIN 250 MG TAB PO SCH (08:29)
[2022-10-09] MEDS: LORATADINE 10 MG TAB PO SCH (08:29)
[2022-10-09] MEDS: FLUTICASONE 50MCG/SPRAY NASAL 16GM EA NOSTRIL SCH (08:30)
[2022-10-09] MEDS: IPRATROPIUM-ALBUTEROL 3 ML NEB INHALATION SCH ×4 (10:09→21:32)
[2022-10-09] MEDS: SYMBICORT 160-4.5 MCG INHALER INHALATION SCH ×2 (10:09→21:32)
[2022-10-09] MEDS: PANTOPRAZOLE 40 MG TABLET PO SCH (13:09)
[2022-10-09] MEDS: MONTELUKAST 10 MG TAB PO SCH (13:09)
[2022-10-09] MEDS: PRAVASTATIN SODIUM 80 MG TAB PO SCH (13:09)
[2022-10-10] MEDS: methylPREDNISolone SOD SUCCI 125 MG/2 ML VIAL IV SCH ×3 (00:07→11:58)
[2022-10-10 00:15] VITALS: RESP 18
[2022-10-10 07:35] VITALS: BP 114/83; TEMP 97.9
[2022-10-10] MEDS: IPRATROPIUM-ALBUTEROL 3 ML NEB INHALATION SCH (08:24)
[2022-10-10] MEDS: SYMBICORT 160-4.5 MCG INHALER INHALATION SCH (08:25)
[2022-10-10 08:27] VITALS: PULSE 75
[2022-10-10] MEDS: LORATADINE 10 MG TAB PO SCH (09:34)
[2022-10-10] MEDS: FLUTICASONE 50MCG/SPRAY NASAL 16GM EA NOSTRIL SCH (09:34)
[2022-10-10] MEDS: LEVOFLOXACIN 250 MG TAB PO SCH (09:34)
[2022-10-10] MEDS: LOSARTAN 50 MG TAB PO SCH (09:34)
[2022-10-10] MEDS: PANTOPRAZOLE 40 MG TABLET PO SCH (13:32)
[2022-10-10] MEDS: PRAVASTATIN SODIUM 80 MG TAB PO SCH (13:32)
[2022-10-10] MEDS: MONTELUKAST 10 MG TAB PO SCH (13:32)
[2022-10-11] MEDS ORDERED: methylPREDNISolone 4 MG TAB TAPER PO SCH (09:00)
--- NOTE | 2022-10-11 21:00 | PN ---
PROGRESS NOTE DATE OF SERVICE: 10/09/2022 CHIEF COMPLAINT: COPD. HISTORY OF PRESENT ILLNESS: This lady is still having difficulty with extreme shortness of breath. She is quite tight and wheezy. PHYSICAL EXAMINATION: LUNGS: Breath sounds are tight, and she has inspiratory and expiratory wheezing. CARDIAC: Normal. ABDOMEN: Soft. IMPRESSION: Exacerbation of chronic obstructive pulmonary disease, not significantly improved. PLAN: Continue with current program. MMODL / IJN: [id number] /
--- NOTE | 2022-10-11 21:27 | DS ---
DISCHARGE SUMMARY CHIEF COMPLAINT: Exacerbation of COPD. HISTORY OF PRESENT ILLNESS AND PHYSICAL EXAMINATION: Details of this lady's history and physical can be found in the initial workup. LABORATORY STUDIES: While she was in the hospital, she had laboratory studies, details of which can be found in the laboratory section of her chart. COURSE IN THE HOSPITAL: She was placed on bedrest and started intravenous fluids with updrafts and IV and inhaled steroids. She improved, but slowly. Finally, it was felt that she was stable enough that she could go home on the , and she will go home on her usual activity, diet, and medications, and she will stay on the steroids and antibiotics. She will be followed up in the office in a few days. FINAL DIAGNOSIS: Exacerbation of chronic obstructive pulmonary disease. OPERATIONS: None. CONSULTATIONS: None. CONDITION: She is improved. ARETHA / REG: [id number] /
== END 2022-10-10 14:02 | disposition home or self-care (01) | DRG 190 ==
LOC: EC 19:55 → 5NMEDONC 21:04 → 4SSUR 10-05 13:36
PROVIDERS: ADMIT Family Medicine; ATTEND Family Medicine
DX: J44.1 Chronic obstructive pulmonary disease with (acute) exacerbation (principal); J96.90 Respiratory failure, unspecified, unspecified whether with hypoxia or hypercapnia; G62.9 Polyneuropathy, unspecified; I73.00 Raynaud's syndrome without gangrene; I10 Essential (primary) hypertension; I49.3 Ventricular premature depolarization; E78.5 Hyperlipidemia, unspecified; Z88.2 Allergy status to sulfonamides; Z88.1 Allergy status to other antibiotic agents; Z87.01 Personal history of pneumonia (recurrent)
CPT/HCPCS: 36415; 71046; 80053; 83605; 83735; 83880; 84484; 85025; 85610; 85730; 87040; 93005; 94640; 94760; 96365; 96366; 96367; 96375; 99291

== ENCOUNTER → 2023-07-16 | Outpatient (CLI) | payer MEDICARE, OTHER ==
--- NOTE | 2023-07-17 00:32 | MM ---
Reason for Exam: Screening (asymptomatic). Last mammogram was performed 5 year(s) and 6 month(s) ago. Patient History: Menarche at age 9. First Full-Term at age 18. Postmenopausal. Estrogen for 7 years until age 49. Progesterone for 7 years until age 49. Risk Values: Lucia 5 year model risk: 1.7%. NCI Lifetime model risk: 5.0%. Prior Study Comparison: 12/02/2016 Bilateral Screening Mammogram, [facility]. 01/12/2018 Bilateral Screening Mammogram, [facility]. 07/13/2018 Left Diagnostic Mammogram, [facility]. Tissue Density: There are scattered areas of fibroglandular density. Findings: Analyzed By CAD. The pattern is symmetrical. No significant interval change No suspicious groups of microcalcifications, spiculated or lobular masses, architectural distortion or other secondary signs of malignancy are mammographically apparent. Overall Assessment: Benign, BI-RAD 2 Management: Screening Mammogram of both breasts in 1 year. A negative mammogram report should not preclude additional follow up of suspicious palpable abnormalities. Patient should continue monthly self breast exam. A clinical breast exam by your physician is recommended on an annual basis and results should be correlated with mammographic findings. Electronically signed and approved by: Edgar Angulo D.O. Radiologis
== END | disposition home or self-care (01) ==
LOC: RADMAMWWP 12:58
PROVIDERS: ATTEND Family Medicine
DX: Z12.31 Encounter for screening mammogram for malignant neoplasm of breast (principal); Z78.0 Asymptomatic menopausal state
CPT/HCPCS: 77067